=== PATIENT | female | born 1965 | race Hispanic/Latino ===

== ENCOUNTER 2019-11-07 12:12 | Emergency (ER) | payer OTHER ==
[~2019-11-07] VITALS: Ht 149.9 cm; Wt 61.2 kg
--- NOTE | 2019-11-07 12:30 | Emergency Department Note ---
History of Present Illnes History of Present Illness Chief Complaint: COVID PUI History of Present Illness This is a 54 year old female, with no significant past medical history, who presents with a 2 day history of sore throat, fever, body aches, mid back pain with inspiration, dry cough, and mild headache. Patient has been taking Motrin for her symptoms, with the last dose approximately 5 hours ago. She denies any nausea, vomiting, diarrhea, abdominal pain, or dysuria. Patient states that she has been exposed to her brother who 2 days ago due to complications due to the coronavirus. She denies being tested for Covid. Historian: Patient Arrival Mode: Car History limited by: language barrier [employer] Required: Yes (Cultural link) Onset (how long ago): day(s) (2) Location: throat and body Quality: sore throat Radiation: Reports non-radiation Severity: moderate Onset quality: sudden Duration (how long): day(s) (2) Timing of current episode: constant Progression: worsening Chronicity: new Context: Denies recent illness, Denies recent surgery, Denies trauma/injury Relieving factors: none Exacerbating factors: none Associated symptoms: Reports cough, Reports fever/chills, Reports headaches, Reports malaise, Reports shortness of breath; Denies rash Treatments prior to arrival: none Past Medical/Family History Physician Review I have reviewed the patient's past medical and family history. Any updates have been documented here. Past Medical History Recent Fever: Yes Clinical Suspicion of Infectio: No New/Unexplained Change in Ment: No Past Medical History: None Past Surgical History: Hysterectomy (complete) Social History Smoking Cessation: Never Smoker Alcohol Use: None Any Illegal Drug Use: No TB Exposure/Symptoms: No Physically hurt or threatened: No Family History Family history of heart diseas: No Other Any Pre-Existing Lines (PICC,: No Is patient up to date on immun: No Review of Systems Review of Systems Constitutional: Reports chills, Reports fever, Reports malaise EENTM: Reports no symptoms Cardiovascular: Denies chest pain Respiratory: Reports pain on inspiration (mid-back); Denies chest congestion, Denies cough (dry) Gastrointestinal: Denies abdominal pain, Denies nausea, Denies vomiting Genitourinary: Reports no symptoms Musculoskeletal: Reports muscle pain (myalgias) Integumentary: Reports no symptoms; Denies rash Neurological: Reports no symptoms Psychological: Reports no symptoms Review of other systems: All other systems negative Physical Exam Related Data Allergies: Coded Allergies: No Known Allergies (Unverified , 11/07/19) Vital signs reviewed: Yes Physical Exam CONSTITUTIONAL Constitutional: Present well-developed, Present well-nourished; Absent distressed, Absent ill appearing HENT HENT: Present normocephalic, Present atraumatic, Present oropharynx clear/moist, Present nose normal HENT L/R: Present left TM normal, Present right TM normal, Present left ext ear normal, Present right ext ear normal EYES Eyes: Reports PERRL, Reports conjunctivae normal NECK Neck: Present ROM normal, Present supple; Absent cervical adenopathy PULMONARY Pulmonary: Present effort normal, Present breath sounds normal CARDIOVASCULAR Cardiovascular: Present regular rhythm, Present heart sounds normal, Present capillary refill normal, Present normal rate; Absent murmur GASTROINTESTINAL Abdominal: Present soft, Present nontender, Present bowel sounds normal; Absent tender GENITOURINARY Genitourinary: Present exam deferred SKIN Skin: Present warm, Present dry; Absent rash MUSCULOSKELETAL Musculoskeletal: Present ROM normal; Absent tenderness NEUROLOGICAL Neurological: Present alert, Present oriented x 3, Present no gross motor or sensory deficits PSYCHOLOGICAL Psychological: Present mood/affect normal, Present judgement normal Results Laboratory Laboratory Rapid Strep - negative; Influenza A/B - negative; Lab results reviewed: Yes Imaging Imaging results reviewed: Yes Impressions [place] [address] Patient Name: LUTHER WINN MR #: [id number] : 1965 Age/Sex: 54/F Req #: [id number] Adm Physician: Ordered by: LUIS ENRIQUE PAIGE MD Report #: [id number] Location: [facility] Room/Bed: Procedure: [id number] HOPD/CXR 2 VIEW - HOPD Exam Date: 11/07/19 Exam Time: 1344 REPORT STATUS: Signed X-ray chest PA and lateral Comparison: None History: Covid exposure Findings: Central airways, cardiomediastinal silhouettes, pleural spaces, lung anand, visualized skeletal structures and upper abdomen are unremarkable. Impression: Normal exam. A normal chest x-ray does not rule out Covid. Signed by: Marie De Paz MD on 11/07/2019 2:00 PM Dictated By: MARIE DE PAZ MD 1400 Transcribed By: VASILE on 11/07/19 1400 COPY TO: LUIS ENRIQUE PAIGE MD~ Assessment & Plan Medical Decision Making MDM Your chest x-ray did not indicate pneumonia. Your flu and strep tests were also negative. He were NOT tested for Covid 19, in the ER today. Your symptoms may be due to Covid 19, or another viral illness. You may consider obtaining a Covid 19 test at one of the [facility], [facility], or other entity that is offering testing. Is recommended that you self or 19 for 14 days, or until you have been completely without symptoms for at least 72 hours and it has been 10 days since the onset of her symptoms. Recommend that she drink plenty of fluids, rest, and U may take ibuprofen 200 mg3 tablets every 6 hours as needed for pain or fever. This will be alternated with Extra Strength Tylenol 500 mg2 tablets every 4 hours as needed. Return to the emergency room, if he develops shortness of breath or difficulty breathing. Assessment & Plan Final Impression: (1) Acute viral syndrome (2) Suspected COVID-19 virus infection Depart Disposition: HOME, SELF-CARE LUIS ENRIQUE PAIGE MD Nov 07, 2019 12:30
--- NOTE | 2019-11-07 14:04 | Diagnostic Imaging Report ---
X-ray chest PA and lateral Comparison: None History: Covid exposure Findings: Central airways, cardiomediastinal silhouettes, pleural spaces, lung anand, visualized skeletal structures and upper abdomen are unremarkable. Impression: Normal exam. A normal chest x-ray does not rule out Covid. Signed by: Trenton Dunn MD on 11/07/2019 2:00 PM
[2019-11-07 14:47] VITALS: BP 142/84
== END 2019-11-07 14:54 | disposition home or self-care (01) ==
LOC: FSED 12:38
DX: B34.9 Viral infection, unspecified (principal); R05 Cough; R06.02 Shortness of breath; R51 Headache; R53.81 Other malaise
CPT/HCPCS: 71046; 83518; 87400; 99283